=== PATIENT | male | born 1965 | race Caucasian/White ===

== ENCOUNTER → 2020-09-11 | Outpatient (CLI) | payer BC, OTHER | LOC: RAD 17:00 | DX: M54.5 Low back pain (principal); M25.50 Pain in unspecified joint; M47.816 Spondylosis without myelopathy or radiculopathy, lumbar region; M47.817 Spondylosis without myelopathy or radiculopathy, lumbosacral region; M25.78 Osteophyte, vertebrae | CPT/HCPCS: 72100; 73030; 73564 ==

== ENCOUNTER → 2021-05-02 | Outpatient (CLI) | payer BC | LOC: KOH-I 15:57 | DX: F17.210 Nicotine dependence, cigarettes, uncomplicated (principal); R91.8 Other nonspecific abnormal finding of lung field | CPT/HCPCS: 71271 ==

== ENCOUNTER → 2021-06-05 | Outpatient (CLI) | payer BC | LOC: HEART 5 07:30 | DX: I25.10 Atherosclerotic heart disease of native coronary artery without angina pectoris (principal); R94.39 Abnormal result of other cardiovascular function study | CPT/HCPCS: 78452; A9502; J2785 ==

== ENCOUNTER → 2021-10-16 | Outpatient (CLI) | payer BC | LOC: KOH-I 09:21 | DX: R05.9 Cough, unspecified (principal) | CPT/HCPCS: 71046 ==

== ENCOUNTER → 2022-02-17 | Outpatient (CLI) | payer BC | LOC: RAD 10:38 | DX: R06.02 Shortness of breath (principal) | CPT/HCPCS: 36415; 71046; 83880 ==

== ENCOUNTER → 2022-04-01 | Outpatient (CLI) | payer BC | LOC: HEART 5 09:27 | DX: R06.02 Shortness of breath (principal); R05.3 Chronic cough | CPT/HCPCS: 94060; 94729 ==